=== PATIENT | male | born 1935 | race Caucasian/White ===

== ENCOUNTER 2018-10-04 05:30 | Day surgery (SDC) | payer OTHER, MEDICARE ==
[~2018-10-04] VITALS: Ht 170.2 cm; Wt 68.5 kg
--- NOTE | ~2018-10-04 | O ---
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 POSTOPERATIVE DIAGNOSIS: Basal cell carcinoma of left lower lid. PROCEDURE: Excision of basal cell carcinoma of left lower lid and medial canthus with frozen section, control of margins and myocutaneous flap repair of defect. SURGEON: Bogdan Otoole MD APPRENTICE ARCHITECT: None. ANESTHESIA: MAC. COMPLICATIONS: None. INDICATIONS FOR SURGERY: This pleasant 83-year-old gentleman has a biopsy-proven basal cell carcinoma in his left medial canthus, extending on to his left lower lid. He presents today for excision of the residual basal cell carcinoma with frozen section, control of tumor, extirpation and subsequent reconstruction. Informed consent was obtained to include but not limited to the potential risk for loss of vision, bleeding, infection, failure to improve the problem, the potential need for further surgery or treatment. DESCRIPTION OF PROCEDURE: The patient was taken to the operating room where 2% Xylocaine with epinephrine mixed with equal parts 0.75% Marcaine with Wydase was administered transcutaneously to the left lower lid, the left medial canthus and the medial aspect of the left cheek. The patient was subsequently prepped and draped in the usual sterile fashion. A fine tip skin marking pen was then utilized to outline the lesion including 1-2 mm of normal appearing tissue and the entire prior scar from that excision. The incisions were then made with a 15C blade and the deeper dissection accomplished with a Jose R scissor as the lesion was removed en-bloc. Hemostasis was achieved in the field with diligent pinpoint monopolar cautery. The specimen was then oriented on a drawing for the waiting pathologist. She snap-froze that specimen and found that the tumor had been completely extirpated with clear margins at all sites. [address] [address] OPERATIVE REPORT Name: OG CAMACHO Room #: 150-4 [facility]..#: [id number] Admission: 10/04/18 ������������������ Attend Phys: Bogdan Otoole MD Discharge: ������������������ Date of : 37 Report #: [id number] A myocutaneous flap was then developed to correct the defect. Hemostasis was then re-achieved. The flap was then rotated into position from the medial aspect of the upper eyelid and secured with multiple interrupted 6-0 plain gut sutures. The wound was then cleaned and dressed with erythromycin ophthalmic ointment. The patient subsequently transported to the recovery area, having tolerated the procedures well with no anesthetic or operative complications being noted. ��������������������������������������������� ���������������������������������������� By: ��������������������������������������������� [id number] Bogdan Otoole MD /loraine
[~2018-10-04 05:30] MED LIST: AMOXICILLIN 50500 M1 PO; ASPIRIN81 M2 PO; CARDIO TEA1 EACH PO; CARDIOSTEROL C1 EACH PO; COSOPT OCUMETER10 M1 OPHTHALMIC; FISH OIL OMEGA1 EAC3 PO; FOSAMAX 70 MG T70 MG PO; LATANOPROST 0.2.5 ML OPHTHALMIC; LIPITOR10 MG PO; LISINOPRIL20 MG PO; MULTIVITAMINS1 EAC7 PO; OMEPRAZOLE 20 M20 M1 PO; VITAMIN D32000 UNI1 PO
[2018-10-04 07:00] VITALS: BP 159/70
--- NOTE | 2018-10-05 16:07 | PATH ---
[facility] [address] [place] [address] PATHOLOGY RPT PROCEDURE Name: OG CAMACHO Room #: DEP [facility] M.R.#: [id number] ������������������ Admission: 10/04/18 ������������������ Date of : 37 Discharge: 10/04/18 Report #: [id number] Path Case #: [id number] [facility] Accession Number: [id number] . 01 Material submitted: . BASAL CELL CARCINOMA LEFT MEDIAL CANTHUS LOWER LID-FS . 02 Diagnosis: Skin, basal cell carcinoma left medial canthus lower lid, excision: - BASAL CELL CARCINOMA. - MARGINS OF RESECTION FREE OF MALIGNANCY; CLOSEST MEDIAL MARGIN IS LESS THAN 0.1 MM AWAY. 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 02 Comment: The frozen section slides are widely free from invasive malignancy as diagnosed at the time of the frozen section. The permanent sections; however, show basal cell carcinoma less than 0.1 mm away from the medial margin. This may represent shrinkage of the tissue subsequent to the frozen section. The malignancy close to the medial margin is conveyed to Dr. Otoole in the morning of 10/05/18. 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 02 Electronically signed: . Nishi Bell MD, Pathologist NPI- [id number] . 01 Gross description: . The specimen is received fresh from the OR labeled with the patient's name, and "left medial canthus lower lid basal cell carcinoma", consists of an oriented ellipse of skin measuring 1.2 x 0.5 x 0.2 cm. It is oriented as superior, lateral, inferior and medial. These are assigned 12:00, 3:00, 6:00 and 9:00 respectively. The 12:00 to 3:00 to 6:00 is inked black, 6:00 to 9:00 is inked blue and the 9:00 to 12:00 is inked green. At this point the specimen is serially sectioned and entirely submitted for frozen section as FSA1, this is subsequently submitted for permanent sections as A1. (IUV:pit 10/04/2018) . Frozen Section Diagnosis: (Nishi Bell) . FSA1. Skin, left medial canthus lower lid, excision: - Negative for invasive carcinoma at margins. - These findings are discussed with Dr. Bogdan Otoole in OR 6 and a written report is placed in the patient's chart. [address] [address] PATHOLOGY RPT PROCEDURE Name: JANICEOG Flores Room #: DEP [facility] Jailyn.Sylvie#: [id number] ������������������ Admission: 10/04/18 ������������������ Date of : 37 Discharge: 10/04/18 Report #: [id number] Path Case #: [id number] (IUV:pit 10/04/2018) . Frozen section performed at [facility], [address] [place] [address] , [place] [address]. /QTP . 02 Pathologist provided ICD-10: C44.1192 . 02 CPT . 038997, 406231 Specimen Comment: A courtesy copy of this report has been sent to Specimen Comment: [phone], . Specimen Comment: Report sent to / DR FRY Performed at: [address] [facility] [address], [place], [place] [id number] MD Ezio Long MD Phone: [phone] Performed at: 02 [facility] [address] [facility], [place], [place] [id number] MD Nishi Bell MD Phone: [phone]
== END 2018-10-04 08:35 | disposition home or self-care (01) ==
LOC: OR 05:30 → TBA 05:30 → OR 08:35
DX: C44.1192 Basal cell carcinoma of skin of left lower eyelid, including canthus (principal); Z87.891 Personal history of nicotine dependence; I10 Essential (primary) hypertension; E78.00 Pure hypercholesterolemia, unspecified; K21.9 Gastro-esophageal reflux disease without esophagitis; Z98.890 Other specified postprocedural states
CPT/HCPCS: 50010; 50101; 50386; 50398; 51636; 56531; 62110; 62850; 70005